=== PATIENT | female | born 1995 | race Native Hawaiian/Other Pacific Islander ===

== ENCOUNTER 2020-12-01 02:01 | Emergency (ER) | payer SELFPAY ==
[~2020-12-01] VITALS: Ht 152 cm; Wt 82.0 kg
[~2020-12-01 02:01] MED LIST: IBUP-1773 PO; PREN-148 PO
[2020-12-01] MEDS ORDERED: FAMOTIDINE 20 MG (PEPCID) TABLET PO STA (02:22)
[2020-12-01 02:23] LABS: BILIRUBIN,URINE NEGATIVE (NEGATIVE); CLARITY,URINE CLEAR; COLOR,URINE YELLOW; GLUCOSE, URINE (UA) NEGATIVE (NEGATIVE); KETONES,URINE NEGATIVE (NEGATIVE); LEUKOCYTE ESTERASE ,URINE 2+ (NEGATIVE); NITRITE,URINE POSITIVE (NEGATIVE); PROTEIN,URINE NEGATIVE (NEGATIVE)
--- NOTE | 2020-12-01 02:28 | ED Abdominal Pain ---
General Stated Complaint: ABD & BACK PAIN,3 MONTHS PREG Source of Information: Patient Exam Limitations: No Limitations History of Present Illness Date Seen by Provider: Dec 01, 2020 Time Seen by Provider: 02:09 Initial Comments Patient presents ER by private conveyance with chief complaint of 2 hours of all over abdominal pain concentrated mostly in her epigastric region. It did not wake her from sleep. She ate about 2 to 3 hours prior to this. She has never had abdominal surgeries or had her gallbladder worked up. She is complaining of nausea but no vomiting. No fevers or chills diarrhea or constipation. She had a bowel movement yesterday afternoon. She states she is approximately 3 months with an LMP sometime in July or August and expected due date somewhere around May. She sees an older gentleman at [facility] for obstetrics. She denies any other significant medical history. She has not had an ultrasound. Allergies and Home Medications Allergies Coded Allergies: No Known Drug Allergies (Unverified , 04/15/15) Patient Home Medication List Home Medication List Reviewed: Yes Ibuprofen (Ibuprofen) 600 Mg Tablet, 600 MG PO Q6H Prescribed by: KELSI VIGIL on 04/17/15 0808 Vit #76/Iron,Carb/FA (Pnv 29-1 Tablet) 1 Each Tablet, 1 EACH PO DAILY, (Reported) Entered as Reported by: CORAZON GOLDBERG on 04/15/15 1252 Review of Systems Review of Systems Constitutional: No chills, No diaphoresis EENTM: No Blurred Vision, No Double Vision Respiratory: Denies Shortness of Air Cardiovascular: Denies Chest Pain, Denies Lightheadedness Gastrointestinal: See HPI; Denies Abdomen Distended; Abdominal Pain; Denies Constipated, Denies Diarrhea; Nausea; Denies Vomiting Genitourinary: Denies Burning, Denies Discharge Musculoskeletal: No back pain, No joint pain Skin: No pruritus, No rash Psychiatric/Neurological: Denies Headache, Denies Numbness All Other Systems Reviewed Negative Unless Noted: Yes Past Yzqwajb-Kplfea-Bifrzd Hx Patient Social History Tobacco Use?: No Use of E-Cig and/or Vaping dev: No Substance use?: No Alcohol Use?: No Immunizations Up To Date Tetanus Booster (TDap): Less than 5yrs PED Vaccines UTD: Yes Past Medical History Reproductive Disorders: No Female Reproductive Disorders: Denies Sexually Transmitted Disease: No HIV/AIDS: No Adverse Reaction/Blood Tranf: No Family Medical History Asthma G8 BROTHER G8 BROTHER Physical Exam Vital Signs Vital Signs - First Documented 12/01/20 02:14 Temp 36.8 Pulse 98 Resp 18 B/P (MAP) 120/78 (92) Pulse Ox 98 O2 Delivery Room Air Capillary Refill : Height/Weight/BMI Height: 4'11.00" Weight: 131lbs. oz. 59.833838ug; 26.46 BMI Method: General Appearance: WD/WN, mild distress HEENT: PERRL/EOMI, pharynx normal Neck: full range of motion, supple, normal inspection Respiratory: lungs clear, normal breath sounds, no respiratory distress, no accessory muscle use Cardiovascular: normal peripheral pulses, regular rate, rhythm Gastrointestinal: normal bowel sounds, soft, tenderness (Epigastric) Extremities: normal range of motion, normal capillary refill Neurologic/Psychiatric: alert, normal mood/affect, oriented x 3 Skin: normal color, warm/dry Progress/Results/Core Measures Results/Orders Lab Results Laboratory Tests Test 12/01/20 02:15 12/01/20 02:25 Range/Units Urine Color YELLOW Urine Clarity CLEAR Urine pH 6.0 5-9 Urine Specific [place] 1.025 H 1.016-1.022 Urine Protein NEGATIVE NEGATIVE Urine Glucose (UA) NEGATIVE NEGATIVE Urine Ketones NEGATIVE NEGATIVE Urine Nitrite POSITIVE H NEGATIVE Urine Bilirubin NEGATIVE NEGATIVE Urine Urobilinogen 2.0 < = 1.0 MG/DL Urine Leukocyte Esterase 2+ H NEGATIVE Urine RBC (Auto) TRACE-I NEGATIVE Urine RBC 0-2 /HPF Urine WBC 5-10 H /HPF Urine Squamous Epithelial Cells 5-10 /HPF Urine Crystals NONE /LPF Urine Bacteria FEW H /HPF Urine Casts NONE /LPF Urine Mucus NEGATIVE /LPF Urine Culture Indicated YES White Blood Count 11.5 H 4.3-11.0 10^3/uL Red Blood Count 4.37 3.80-5.11 10^6/uL Hemoglobin 13.3 11.5-16.0 g/dL Hematocrit 37 35-52 % Mean Corpuscular Volume 85 80-99 fL Mean Corpuscular Hemoglobin 30 25-34 pg Mean Corpuscular Hemoglobin Concent 36 32-36 g/dL Red Cell Distribution Width 11.7 10.0-14.5 % Platelet Count 235 130-400 10^3/uL Mean Platelet Volume 10.0 9.0-12.2 fL Immature Granulocyte % (Auto) 0 % Neutrophils (%) (Auto) 68 42-75 % Lymphocytes (%) (Auto) 22 12-44 % Monocytes (%) (Auto) 8 0-12 % Eosinophils (%) (Auto) 2 0-10 % Basophils (%) (Auto) 1 0-10 % Neutrophils # (Auto) 7.8 1.8-7.8 10^3/uL Lymphocytes # (Auto) 2.5 1.0-4.0 10^3/uL Monocytes # (Auto) 0.9 0.0-1.0 10^3/uL Eosinophils # (Auto) 0.2 0.0-0.3 10^3/uL Basophils # (Auto) 0.1 0.0-0.1 10^3/uL Immature Granulocyte # (Auto) 0.1 0.0-0.1 10^3/uL Sodium Level 135 135-145 MMOL/L Potassium Level 3.5 L 3.6-5.0 MMOL/L Chloride Level 105 98-107 MMOL/L Carbon Dioxide Level 18 L 21-32 MMOL/L Anion Gap 12 5-14 MMOL/L Glucose Level 93 70-105 MG/DL Calcium Level 9.6 8.5-10.1 MG/DL Corrected Calcium 9.5 8.5-10.1 MG/DL Total Bilirubin 0.5 0.1-1.0 MG/DL Total Protein 7.7 6.4-8.2 GM/DL Albumin 4.1 3.2-4.5 GM/DL My Orders Orders - PAWAN CORRAL Ua Culture If Indicated (12/01/20 02:10) Urine Bedside (12/01/20 02:10) Cbc With Automated Diff (12/01/20 02:22) Comprehensive Metabolic Panel (12/01/20 02:22) Hs C Reactive Protein (12/01/20 02:22) Lipase (12/01/20 02:22) Lidocaine 2% Viscous 15 Ml (Xylocaine Vi (12/01/20 02:30) Famotidine Tablet (Pepcid Tablet) (12/01/20 02:22) Antacid Suspension (Mylanta Suspension (12/01/20 02:30) Ondansetron Oral Dissolve Tab (Zofran (12/01/20 02:30) Urine Culture (12/01/20 02:15) Medications Given in ED Current Medications Medications Dose Ordered Sig/Tre Route Start Time Stop Time Status Last Admin Dose Admin Al Hydrox/Mg Hydrox/Simethicone 30 ml ONCE ONCE PO 12/01/20 02:30 12/01/20 02:31 DC 12/01/20 02:32 30 ML Lidocaine HCl 15 ml ONCE ONCE PO 12/01/20 02:30 12/01/20 02:31 DC 12/01/20 02:32 15 ML Ondansetron HCl 4 mg ONCE ONCE PO 12/01/20 02:30 12/01/20 02:31 DC 12/01/20 02:32 4 MG Vital Signs/I&O 12/01/20 02:14 Temp 36.8 Pulse 98 Resp 18 B/P (MAP) 120/78 (92) Pulse Ox 98 O2 Delivery Room Air Progress Progress Note : Time: 02:33 Progress Note Abdominal discomfort came a few hours after eating and seems to be more in her epigastric region. Gastritis versus gallbladder. Plan to give her some Zofran and a GI cocktail. Basic labs and urinalysis Departure Impression Primary Impression: Urinary tract infection Qualified Codes: N30.00 - Acute cystitis without hematuria Additional Impression: Qualified Codes: Z3A.12 - 12 weeks gestation of Disposition: 01 HOME, SELF-CARE Condition: Stable Departure-Patient Inst. Decision time for Depature: 02:51 Referrals: CIRO STANFORD MD (PCP/Family) Primary Care Physician Patient Instructions: Urinary Tract Infection, Adult (DC), - The Third Month Add. Discharge Instructions: Drink lots of fluids. Keflex 1 capsule twice a day for the next week. Scripts Cephalexin (Cephalexin) 500 Mg Tablet 500 MG PO BID for 7 Days, #14 TAB 0 Refills Prov: PAWAN CORRAL 12/01/20 Copy Copies To 1: CIRO STANFORD MD, TITUS J Dec 01, 2020 02:28
[2020-12-01 02:30] LABS: BACTERIA,URINE FEW /HPF; RBC,URINE 0-2 /HPF
[2020-12-01] MEDS ORDERED: ANTACID SUSP 30 ML UDC (MYLANTA) PO ONE (02:30)
[2020-12-01] MEDS ORDERED: ONDANSETRON 4 MG (ZOFRAN) ORAL DISSOLVE TAB PO ONE (02:30)
[2020-12-01] MEDS ORDERED: LIDOCAINE 2% VISCOUS 15 ML UDC PO ONE (02:30)
[2020-12-01 02:33] LABS: BASOPHILS # (AUTO) 0.1 10^3/uL (0.0-0.1); BASOPHILS % (AUTO) 1 % (0-10); EOSINOPHILS # (AUTO) 0.2 10^3/uL (0.0-0.3); EOSINOPHILS % (AUTO) 2 % (0-10); HEMATOCRIT 37 % (35-52); HEMOGLOBIN 13.3 g/dL (11.5-16.0); LYMPHOCYTES # (AUTO) 2.5 10^3/uL (1.0-4.0); LYMPHOCYTES % (AUTO) 22 % (12-44); MEAN CORPUSCULAR HEMOGLOBIN 30 pg (25-34); MEAN CORPUSCULAR HGB CONC 36 g/dL (32-36); MEAN CORPUSCULAR VOLUME 85 fL (80-99); MONOCYTES # (AUTO) 0.9 10^3/uL (0.0-1.0); MONOCYTES % (AUTO) 8 % (0-12); NEUTROPHILS # (AUTO) 7.8 10^3/uL (1.8-7.8); NEUTROPHILS % (AUTO) 68 % (42-75); PLATELET COUNT 235 10^3/uL (130-400); WHITE BLOOD COUNT 11.5 10^3/uL (4.3-11.0)
[2020-12-01 02:43] LABS: ALBUMIN 4.1 GM/DL (3.2-4.5); POTASSIUM 3.5 MMOL/L (3.6-5.0)
[2020-12-01 02:44] LABS: CALCIUM 9.6 MG/DL (8.5-10.1)
[2020-12-01 02:46] LABS: TOTAL PROTEIN 7.7 GM/DL (6.4-8.2)
[2020-12-01 02:47] LABS: BILIRUBIN,TOTAL 0.5 MG/DL (0.1-1.0)
[2020-12-01 02:49] LABS: CREATININE SERUM 0.7 MG/DL (0.60-1.30)
[2020-12-01] MEDS ORDERED: CEPH500T PO (02:56)
[2020-12-01] MEDS ORDERED: LIDOCAINE 1% INJ 20 ML 20 ML VIAL INJ ONE (03:00)
[2020-12-01] MEDS ORDERED: cefTRIAXone 500 MG/5 ML ML IM ONE (03:00)
[2020-12-01 03:05] VITALS: BP 121/79
== END 2020-12-01 03:07 | disposition home or self-care (01) ==
LOC: EDUNIT# 02:01 → ER 02:07
DX: O23.41 Unspecified infection of urinary tract in pregnancy, first trimester (principal); Z3A.12 12 weeks gestation of pregnancy
CPT/HCPCS: 36415; 80053; 81000; 83690; 84703; 85025; 86141; 87088; 99284

== ENCOUNTER 2021-05-06 02:29 | Inpatient (IN) | payer OTHER ==
[~2021-05-06] VITALS: Ht 149.9 cm; Wt 68.2 kg
[2021-05-06] VITALS (14 sets, daily range): BP systolic 96–122; BP diastolic 51–81
[~2021-05-06 02:29] MED LIST changes: +CEPH500T PO
[2021-05-06 02:51] LABS: BILIRUBIN,URINE NEGATIVE (NEGATIVE); CLARITY,URINE CLEAR; COLOR,URINE YELLOW; GLUCOSE, URINE (UA) NEGATIVE (NEGATIVE); KETONES,URINE NEGATIVE (NEGATIVE); LEUKOCYTE ESTERASE ,URINE 2+ (NEGATIVE); NITRITE,URINE POSITIVE (NEGATIVE); PROTEIN,URINE NEGATIVE (NEGATIVE)
[2021-05-06 03:04] LABS: BACTERIA,URINE MODERATE /HPF; SQUAMOUS EPITHELIAL CELL,UR 0-2 /HPF
[2021-05-06] MEDS ORDERED: cefTRIAXone 1 GM PRE-MIX 50 ML IV ONE (04:00)
[2021-05-06] MEDS ORDERED: cefTRIAXone 1,000 MG VIAL ONE (04:02)
[2021-05-06] MEDS ORDERED: NS (IVPB) 50 ML ONE (04:02)
[2021-05-06] MEDS: LACTATED RINGERS 1,000 ML IV SCH ×2 (04:11→05:25)
[2021-05-06] MEDS ORDERED: D5 LR IV SOLUTION 1,000 ML IV SCH ×2 (05:30)
[2021-05-06 05:39] LABS: BASOPHILS % (AUTO) 0 % (0-10); EOSINOPHILS # (AUTO) 0.2 10^3/uL (0.0-0.3); EOSINOPHILS % (AUTO) 2 % (0-10); HEMATOCRIT 38 % (35-52); HEMOGLOBIN 12.9 g/dL (11.5-16.0); LYMPHOCYTES # (AUTO) 3.1 10^3/uL (1.0-4.0); LYMPHOCYTES % (AUTO) 29 % (12-44); MEAN CORPUSCULAR HEMOGLOBIN 30 pg (25-34); MEAN CORPUSCULAR HGB CONC 34 g/dL (32-36); MEAN CORPUSCULAR VOLUME 86 fL (80-99); MEAN PLATELET VOLUME 11.5 fL (9.0-12.2); MONOCYTES # (AUTO) 0.6 10^3/uL (0.0-1.0); MONOCYTES % (AUTO) 6 % (0-12); NEUTROPHILS # (AUTO) 6.5 10^3/uL (1.8-7.8); NEUTROPHILS % (AUTO) 62 % (42-75); PLATELET COUNT 164 10^3/uL (130-400); WHITE BLOOD COUNT 10.6 10^3/uL (4.3-11.0)
[2021-05-06] MEDS ORDERED: OXYTOCIN PRE-MIX DRIP 500 ML IV ONE ×2 (05:51→06:53)
[2021-05-06] MEDS ORDERED: MEPIVACAINE (CARBOCAINE) 2% 50 ML VIAL ONE (05:51)
[2021-05-06] MEDS ORDERED: CATHETER FLUSH 10 ML SYR IV SCH ×2 (06:00→14:00)
[2021-05-06] MEDS ORDERED: TETANUS,DIPTH,PERTUSS P/F (BOOSTRIX) 0.5 ML VIAL IM ONE (07:15)
[2021-05-06] MEDS ORDERED: WITCH HAZEL(TUCKS) 40 EA JAR TOP PRN (07:15)
[2021-05-06] MEDS ORDERED: MEASLES,MUMPS,RUBELLA 1 EA INJ SQ ONE (07:15)
[2021-05-06] MEDS ORDERED: OXYTOCIN PRE-MIX DRIP 500 ML IV SCH (07:15)
[2021-05-06] MEDS ORDERED: BENZOCAINE/MENTHOL (DERMOPLAST) 56 ML CAN TP PRN (07:15)
[2021-05-06] MEDS ORDERED: NALOXONE 0.4 MG/ML 1 ML (NARCAN) VIAL IV PRN (07:15)
--- NOTE | 2021-05-06 07:18 | History & Physical-OB ---
OB - Chief Complaint & HPI Date/Time Date of Admission: Date of Admission: May 06, 2021 at 05:30 Date seen by a Provider: May 06, 2021 Time Seen by a Provider: 06:05 Chief Complaint/History OB-Reason for Admission/Chief: Onset of Labor Hx : 2 Hx Para: 1 Expected Date of Delivery: May 17, 2021 Gestational Age in Weeks: 38 Gestational Age in Days: 3 Other reason for admission: contractions and in labor Admission Nurse Assessment Rev: Yes History of Labs GBS unknown Allergies and Home Medications Allergies Coded Allergies: No Known Drug Allergies (Unverified , 04/15/15) Patient Home Medication List Home Medication List Reviewed: Yes Cephalexin (Cephalexin) 500 Mg Tablet, 500 MG PO BID Prescribed by: PAWAN CORRAL on 12/01/20 0256 Ibuprofen (Ibuprofen) 600 Mg Tablet, 600 MG PO Q6H Prescribed by: KELSI VIGIL on 04/17/15 0808 Vit #76/Iron,Carb/FA (Pnv 29-1 Tablet) 1 Each Tablet, 1 EACH PO DAILY, (Reported) Entered as Reported by: CORAZON GOLDBERG on 04/15/15 1252 OB - History Hx of Present Care: Yes Ultrasounds: Normal mid trimester US Obstetrical Complications: Other (maternal syphllis - treated) Medical Complications: None Obstetrical History Hx : 2 Hx Para: 1 Delivery History Hx Blood Disorders: No Adverse Rxn to Tranfusion: No Patient Past Medical History No significant Social History/Family History Alcohol Use: Denies Use Recreational Drug Use: No 2nd Hand Smoke Exposure: No Immunizations Influenza Vaccine Up-to-Date: No; Not Current Hepatitis A: No Hepatitis B: No Tetanus Booster (TDap): Less than 5yrs OB - Admission Exam Physical Exam Vitals: Vital Signs 05/06/21 05/06/21 02:46 04:35 Temp 36.8 Pulse 76 Resp 18 B/P (MAP) 113/71 (85) Pulse Ox 98 O2 Delivery Room Air HEENT: Moist Membranes Heart: Rhythm Normal Lungs: Clear Abdomen: Gravid Cervical Dilatation: 4cm (on admission) Effacement: 75% Station: -2 Membranes: Intact (on admit) Heart Rate: 130's Accelerations: Accelerations Present Decelerations: No Decelerations Short Term Variability: Present Thread Drawer Variability: Average (6-25) Contractions on Admission: 6-10 Minutes Apart Intensity: Moderate Labs Laboratory Tests Test 05/06/21 02:45 05/06/21 04:05 Range/Units Urine Color YELLOW Urine Clarity CLEAR Urine pH 7.0 5-9 Urine Specific [place] 1.010 L 1.016-1.022 Urine Protein NEGATIVE NEGATIVE Urine Glucose (UA) NEGATIVE NEGATIVE Urine Ketones NEGATIVE NEGATIVE Urine Nitrite POSITIVE H NEGATIVE Urine Bilirubin NEGATIVE NEGATIVE Urine Urobilinogen 0.2 < = 1.0 MG/DL Urine Leukocyte Esterase 2+ H NEGATIVE Urine RBC (Auto) NEGATIVE NEGATIVE Urine RBC NONE /HPF Urine WBC 10-25 H /HPF Urine Squamous Epithelial Cells 0-2 /HPF Urine Crystals NONE /LPF Urine Bacteria MODERATE H /HPF Urine Casts NONE /LPF Urine Mucus NEGATIVE /LPF Urine Culture Indicated YES White Blood Count 10.6 4.3-11.0 10^3/uL Red Blood Count 4.38 3.80-5.11 10^6/uL Hemoglobin 12.9 11.5-16.0 g/dL Hematocrit 38 35-52 % Mean Corpuscular Volume 86 80-99 fL Mean Corpuscular Hemoglobin 30 25-34 pg Mean Corpuscular Hemoglobin Concent 34 32-36 g/dL Red Cell Distribution Width 13.6 10.0-14.5 % Platelet Count 164 130-400 10^3/uL Mean Platelet Volume 11.5 9.0-12.2 fL Immature Granulocyte % (Auto) 1 % Neutrophils (%) (Auto) 62 42-75 % Lymphocytes (%) (Auto) 29 12-44 % Monocytes (%) (Auto) 6 0-12 % Eosinophils (%) (Auto) 2 0-10 % Basophils (%) (Auto) 0 0-10 % Neutrophils # (Auto) 6.5 1.8-7.8 10^3/uL Lymphocytes # (Auto) 3.1 1.0-4.0 10^3/uL Monocytes # (Auto) 0.6 0.0-1.0 10^3/uL Eosinophils # (Auto) 0.2 0.0-0.3 10^3/uL Basophils # (Auto) 0.0 0.0-0.1 10^3/uL Immature Granulocyte # (Auto) 0.1 0.0-0.1 10^3/uL Glucose Level 66 L 70-105 MG/DL OB - Assessment/Plan/Diagnosis Assessment Assessment: active labor Admission Dx 1. IUP at 39 weeks 3 days gestation 2. 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
--- NOTE | 2021-05-06 07:20 | OB Labor & Delivery Record ---
L&D History Date of Service Date of Service: May 06, 2021 History Expected Date of Delivery: May 17, 2021 Gestational Age in Weeks: 38 Hx : 2 Hx Para: 2 Complications Events: Routine care (Except for maternal syphilis treated) Operative Indications (Ces[place]: N/A-Vaginal Delivery Intrapartal Events: None Other Complications -Delivery proceeded to quickly for ampicillin protocol since her GBS status was unknown. We will check with [facility] charts L&D Stage1 Stage One Onset of Labor - Date: May 06, 2021 Onset of Labor - Time: 02:00 Monitors and Tracing Monitor Mode: External Heart Rate: 135 Monitor Accelerations: Uniform Monitor Decelerations: Variable Station: -2 Short Term Variability: Present Presentation: Vertex Vital Signs VS - Last 72 Hours, by Label 05/06/21 05/06/21 05/06/21 05/06/21 02:37 02:45 02:46 04:35 Temp 37.1 37.1 37.1 36.8 Pulse 77 77 77 76 Resp 18 18 18 18 B/P (MAP) 116/70 (85) 113/71 (85) Pulse Ox 98 98 98 O2 Delivery Room Air Room Air Room Air Room Air Signs of Distress by FHT Signs of Distress No Rupture of Membranes Spontaneous Ruture of Membrane: No Amniotic Membrane Rupture Time: 06:10 Amniotic Membrane Fluid Desc.: Clear Vaginal Bleeding Description: None Induction/Anesthesia Medications None L&D Stage2 Stage Two Stage II Date: May 06, 2021 Stage II Time: 06:29 Monitors and Tracing Monitor Mode: External Heart Rate: 135 Monitor Accelerations: Uniform Monitor Decelerations: Variable Assisted Variability: Average (6-10) Short Term Variability: Present Position: Left Occiput Anterior Presentation: Vertex Signs of Distress by FHT Signs of Distress No Cord Descript/Complications Cord Vessel Description: 3 Vessels Delivery Type Infant Delivery Method: Spontaneous Vaginal Anterior Shoulder: Left Episiotomy/Perineal Laceration Laceraction(s)/Extensions: No Condition of Delivery 1 minute Comment: 8 5 minute Comment: 9 Condition of Infant Condition of : Living Exam: No Observed Abnormalities Resuscitation Resuscitation: N/A - Spontaneous Resp L&D Stage3 Stage Three Stage III Date: May 06, 2021 Stage III Time: 06:34 Pictocin Pitocin Administration mu/min: 12 Placenta Delivery Placenta Delivery: Spontaneous Delivery Summary Summary Estimated blood loss (mL): 200 Condition of Delivery Examined: Cervix Examined Post Hemorrhage: No Intervention Required None MADISON PABLO MD May 06, 2021 07:20
[2021-05-06] MEDS: IBUPROFEN 600 MG (MOTRIN) TAB PO SCH ×2 (12:45→18:30)
[2021-05-06] MEDS: DOCUSATE SODIUM 100 MG (COLACE) CAP PO SCH ×2 (12:45→22:01)
[2021-05-06] MEDS: ACETAMINOPHEN 500 MG TAB (TYLENOL) PO SCH ×2 (12:45→18:30)
[2021-05-07 01:29] VITALS: BP 96/52
[2021-05-07] MEDS: ACETAMINOPHEN 500 MG TAB (TYLENOL) PO SCH ×2 (01:29→08:22)
[2021-05-07] MEDS: IBUPROFEN 600 MG (MOTRIN) TAB PO SCH ×2 (01:29→08:23)
[2021-05-07 06:15] LABS: BASOPHILS % (AUTO) 0 % (0-10); EOSINOPHILS # (AUTO) 0.2 10^3/uL (0.0-0.3); EOSINOPHILS % (AUTO) 2 % (0-10); HEMATOCRIT 29 % (35-52); HEMOGLOBIN 10.2 g/dL (11.5-16.0); LYMPHOCYTES # (AUTO) 3.5 10^3/uL (1.0-4.0); LYMPHOCYTES % (AUTO) 33 % (12-44); MEAN CORPUSCULAR HEMOGLOBIN 30 pg (25-34); MEAN CORPUSCULAR HGB CONC 35 g/dL (32-36); MEAN CORPUSCULAR VOLUME 86 fL (80-99); MEAN PLATELET VOLUME 11.5 fL (9.0-12.2); MONOCYTES # (AUTO) 0.6 10^3/uL (0.0-1.0); MONOCYTES % (AUTO) 5 % (0-12); NEUTROPHILS # (AUTO) 6.3 10^3/uL (1.8-7.8); NEUTROPHILS % (AUTO) 59 % (42-75); PLATELET COUNT 137 10^3/uL (130-400); WHITE BLOOD COUNT 10.7 10^3/uL (4.3-11.0)
[2021-05-07] MEDS ORDERED: PRENATAL VITAMIN 1 EA TAB PO SCH (07:00)
--- NOTE | 2021-05-07 07:14 | Discharge Summary ---
Diagnosis/Chief Complaint Date of Admission May 06, 2021 at 05:30 Date of Discharge May 07, 2021 Admission Diagnosis Admission Diagnosis 1. Intrauterine at 38 weeks gestation Discharge Diagnosis 1. Intrauterine at 38 weeks gestation Chief Complaint/HPI Chief Complaint/HPI 25-year-old 2 now termed 2 who initially presented to labor and delivery during the morning of May 06, 2021 in active labor. She was dilated to 4 cm upon presentation. Her EDC was noted to be May 17, 2021. Discharge Summary-OBS Procedures 1. Spontaneous vaginal delivery Discharge Physical Examination Allergies: Coded Allergies: No Known Drug Allergies (Unverified , 04/15/15) Vitals & I&Os Vital Sign - Last 12Hours Date Time Temp Pulse Resp B/P (MAP) Pulse Ox O2 Delivery O2 Flow Rate FiO2 05/07/21 01:29 36.8 66 18 96/52 (67) 97 Room Air General Appearance: No Acute Distress Respiratory: Clear to Auscultation Cardiovascular: Regular Rate Abdominal: Soft (with uterus firm) Hospital Course Was the Problem List Reviewed?: Yes Upon presentation she continued her labor course. Ultimately she went on to deliver in the showroom consultant of May 06, 2021 a term viable male. Infant delivered with Apgars of 8 at 1 minute and 9 at 5 minutes. Mother did not have any perineal lacerations. See labor and delivery note for full details. Following delivery she underwent routine care orders. She had no complications during the remainder of hospital stay. She voided urine without difficulty. She was noted to be ambulatory and not with any significant shortness of breath or chest pain. Her hemoglobin in the morning of May 07, 2021 was noted to be 10.2 compared to admission of 12.9. She was felt ready for dismissal and all questions were answered. She will follow-up with myself in 6 weeks check [facility]. Labs Laboratory Tests 05/07/21 05:45: White Blood Count 10.7, Red Blood Count 3.43L, Hemoglobin 10.2#L, Hematocrit 29L , Mean Corpuscular Volume 86, Mean Corpuscular Hemoglobin 30, Mean Corpuscular Hemoglobin Concent 35, Red Cell Distribution Width 13.9, Platelet Count 137, Mean Platelet Volume 11.5, Immature Granulocyte % (Auto) 1, Neutrophils (%) (Auto) 59, Lymphocytes (%) (Auto) 33, Monocytes (%) (Auto) 5, Eosinophils (%) (Auto) 2, Basophils (%) (Auto) 0, Neutrophils # (Auto) 6.3, Lymphocytes # (Auto) 3.5, Monocytes # (Auto) 0.6, Eosinophils # (Auto) 0.2, Basophils # (Auto) 0.0, Immature Granulocyte # (Auto) 0.1 Discharge Instructions to patient/family Please see electronic discharge instructions given to patient. Discharge Medications Reviewed and agree with Discharge Medication list on patient's Discharge Instruction sheet MADISON PABLO MD May 07, 2021 07:14
[2021-05-07] MEDS ORDERED: IBUP-1773 PO (07:18)
--- NOTE | 2021-05-07 07:19 | Discharge Inst-Women's Service ---
Discharge Inst-Women's Serv Depart Medication/Instructions New, Converted or Re-Newed RX: Transmitted to Pharmacy ([facility]) Problems Reviewed?: Yes Consults/Follow Up Additional Follow Up: Yes (Dr Pablo in 6 weeks at [facility]) Activity Activity: Activity as Tolerated Driving Instructions: No Driving for 1 Week Nothing Inside Vagina: No [place] (for 6 weeks) Diet Discharge Diet: Regular Diet Return to The Hospital For: as below Symptoms to Report to : Bleeding Excessive, Fever Over 101 Degrees F, Vaginal Discharge Foul For Any Problems or Questions: Contact Your Physician MADISON PABLO MD May 07, 2021 07:19
[2021-05-07 08:22] VITALS: BP 112/82
[2021-05-07] MEDS: DOCUSATE SODIUM 100 MG (COLACE) CAP PO SCH (08:23)
== END 2021-05-07 11:25 | disposition home or self-care (01) | DRG 807 ==
LOC: WSo 02:29 → LDRP 02:30 → WSo 05:29 → LDRP 05:30
PROVIDERS: ADMIT Family Medicine; ATTEND Family Medicine
PROC: 10E0XZZ Delivery of Products of Conception, External Approach (ICD-10-PCS; principal; 2021-05-06)
DX: O80 Encounter for full-term uncomplicated delivery (principal); Z37.0 Single live birth; Z3A.38 38 weeks gestation of pregnancy
CPT/HCPCS: 36415; 81000; 82947; 85025; 86780; 86850; 86900; 86901; 87077; 87088; 87186; 99212

== ENCOUNTER 2022-12-14 08:29 | Emergency (ER) | payer SELFPAY ==
[~2022-12-14] VITALS: Ht 154 cm; Wt 81.6 kg
--- NOTE | 2022-12-14 09:07 | ED GU-Female ---
General Chief Complaint: OB < 20 WEEKS Stated Complaint: 4 WEEKS | HEAVY VAGINAL BLEEDING Nursing Triage Note: pt presents to ed via pov from home with complaints of vaginal bleeding and blood clots starting yesterday. pt was seen at the medical center yesterday but was unable to have us done. pt reports having positive preg tests at home. pt unsure how far along she is but reports last menstral period in oct. Source: patient Exam Limitations: no limitations (JOANNA MOMIN) History of Present Illness Date Seen by Provider: Dec 14, 2022 Time Seen by Provider: 08:55 Initial Comments Patient presents today with a 1 day history of vaginal bleeding. She says that the bleeding has been copious amounts over the past day. She went to [facility] a yesterday afternoon to try to get an US done, but they did not have US available at that time. Her last menstrual period was in October so she believes herself to be around 4 weeks at this time. She has 2 prior pregnancies, 7 year and over 1 year ago. Both pregnancies were uncomplicated she states. She has no pain associated with her bleeding and states she has no other presenting symptoms. She denies any nausea, vomiting, abdominal pain, diarrhea, headaches at this time. Timing/Duration: yesterday Severity/Quality: mild Location: vaginal Radiation: none Activities at Onset: none Prior Genitourinary Problems: none Sexual [place] History: less than 2 months ago, single partner (JOANNA MOMIN) Allergies and Home Medications Allergies Coded Allergies: No Known Drug Allergies (Unverified , 04/15/15) Patient Home Medication List Home Medication List Reviewed: Yes (JOANNA MOMIN) Cephalexin (Cephalexin) 500 Mg Tablet, 500 MG PO BID Prescribed by: PAWAN CORRAL on 12/01/20 0256 Ibuprofen (Ibuprofen) 600 Mg Tablet, 600 MG PO Q6H Prescribed by: MADISON PABLO on 05/07/21 0718 Vit #76/Iron,Carb/FA (Pnv 29-1 Tablet) 1 Each Tablet, 1 EACH PO DAILY, (Reported) Entered as Reported by: CORAZON GOLDBERG on 04/15/15 1252 Review of Systems Review of Systems Constitutional: no symptoms reported EENTM: no symptoms reported Respiratory: no symptoms reported; No short of breath, No wheezing Cardiovascular: no symptoms reported; No palpitations, No syncope Gastrointestinal: No abdominal pain, No diarrhea, No nausea, No vomiting Genitourinary: hematuria : Yes LMP: Nov 02, 2022 (last week of October she knows) Musculoskeletal: no symptoms reported (JOANNA MOMIN) All Other Systemes Reviewed Negative Unless Noted: Yes (JOANNA MOMIN) Past Jdpqmcp-Kccaom-Pwwzbv Hx Patient Social History Tobacco Use?: No Substance use?: No Alcohol Use?: No Pt feels they are or have been: No (JOANNA MOMIN) Immunizations Up To Date Tetanus Booster (TDap): Less than 5yrs PED Vaccines UTD: Yes (JOANNA MOMIN) Past Medical History Surgery/Hospitalization HX: denies Reproductive Disorders: No Female Reproductive Disorders: Denies Sexually Transmitted Disease: No HIV/AIDS: No Adverse Reaction/Blood Tranf: No (JOANNA MOMIN) Family Medical History Asthma G8 BROTHER G8 BROTHER Physical Exam Vital Signs Vital Signs - First Documented 12/14/22 08:49 Temp 37.4 Pulse 76 Resp 18 B/P (MAP) 120/78 (92) Pulse Ox 99 (MAIRA ESTHER HARDY MD) Vital Signs Capillary Refill : Less Than 3 Seconds (JOANNA MOMIN) Height, Weight, BMI Height: 4'11.00" Weight: 131lbs. oz. 59.022814cz; 34.00 BMI Method: General Appearance: WD/WN, no apparent distress Cardiovascular: regular rate, rhythm, no gallop, no murmur Respiratory: lungs clear, normal breath sounds, no respiratory distress, no accessory muscle use Gastrointestinal: non tender, soft Neurologic/Psychiatric: alert, normal mood/affect, oriented x 3 (JOANNA MOMIN) Progress/Results/Core Measures Suspected Sepsis SIRS Temperature: Pulse: 76 Respiratory Rate: 18 Blood Pressure 120 /78 Mean: 92 (JOANNA MOMIN) Results/Orders Lab Results Laboratory Tests Test 12/14/22 08:45 Range/Units White Blood Count 10.8 4.3-11.0 10^3/uL Red Blood Count 4.79 3.80-5.11 10^6/uL Hemoglobin 14.2 11.5-16.0 g/dL Hematocrit 42 35-52 % Mean Corpuscular Volume 87 80-99 fL Mean Corpuscular Hemoglobin 30 25-34 pg Mean Corpuscular Hemoglobin Concent 34 32-36 g/dL Red Cell Distribution Width 12.1 10.0-14.5 % Platelet Count 250 130-400 10^3/uL Mean Platelet Volume 10.0 9.0-12.2 fL Immature Granulocyte % (Auto) 1 % Neutrophils (%) (Auto) 60 42-75 % Lymphocytes (%) (Auto) 28 12-44 % Monocytes (%) (Auto) 9 0-12 % Eosinophils (%) (Auto) 2 0-10 % Basophils (%) (Auto) 1 0-10 % Neutrophils # (Auto) 6.5 1.8-7.8 10^3/uL Lymphocytes # (Auto) 3.0 1.0-4.0 10^3/uL Monocytes # (Auto) 1.0 0.0-1.0 10^3/uL Eosinophils # (Auto) 0.3 0.0-0.3 10^3/uL Basophils # (Auto) 0.1 0.0-0.1 10^3/uL Immature Granulocyte # (Auto) 0.1 0.0-0.1 10^3/uL Human Chorionic Gonadotropin, Quant 78 H <5 MIU/ML (MARIA ESTHER HARDY MD) My Orders Orders - MARIA ESTHER HARDY MD Cbc And Automated Diff (12/14/22 09:10) Hcg,Quantitative (12/14/22 09:10) Ed Iv/Invasive Line Start (12/14/22 09:12) Us Ob<14 Wks Sngle W/Transvag (12/14/22 09:53) (MARIA ESTHER HARDY MD) Vital Signs/I&O 12/14/22 12/14/22 08:49 14:11 Temp 37.4 37.4 Pulse 76 80 Resp 18 18 B/P (MAP) 120/78 (92) 114/75 Pulse Ox 99 99 (MARIA ESTHER HARDY MD) Vital Signs/I&O Capillary Refill : Less Than 3 Seconds (JOANNA MOMIN) Blood Pressure Mean: 92 Progress Note : Time: 08:55 Progress Note 8:55 - Patient is seen this morning with a 1 day history of vaginal bleeding. She has no other associated symptoms or pain involved with the bleeding. She was seen at [facility] yesterday but they did not have US available at that time. She knows that her LMP was the last week of October and believes herself to be around 4 weeks at this time. She has had two other pregnancies prior without complications in either one. Her heart and lung exam are unremarkable at this point in the exam, she has no abdominal pain on palpation. Plan is to obtain a CBC and Quantitative HcG at this time. (JOANNA MOMIN) Diagnostic Imaging Diagonstic Imaging: Ultrasound Plain Films/CT/US/NM/MRI: pelvis Comments NAME: AILYN PARK MED REC#: [id number] PT STATUS: DEP ER : 1995 PHYSICIAN: MARIA ESTHER HARDY MD ADMIT DATE: 12/14/22/ER Signed Date of Exam:12/14/22 US OB<14 WKS SNGLE W/TRANSVAG INDICATION: 1st trimester bleeding. FINDINGS: No intra or extrauterine gestation is identified. There is no adnexal lesion or torsion. The endometrium is thickened but homogenous at 1.7 cm. No fibroid or myometrial mass. No free fluid. IMPRESSION: No intra or extrauterine gestation. No adnexal torsion. No acute appearing abnormality. Dictated by: Dictated on workstation # [id number] Dict: 12/14/22 1235 Trans: 12/14/228 [id number] Interpreted by: CHELSY BULLOCK Electronically signed by: CHELSY BULLOCK 12/14/22 1418 (MARIA ESTHER HARDY MD) Departure Impression Primary Impression: Vaginal bleeding affecting early Additional Impression: Probable miscarriage Disposition: 01 HOME, SELF-CARE Condition: Stable Departure-Patient Inst. Decision time for Depature: 13:59 (MARIA ESTHER HARDY MD) Referrals: CIRO STANFORD MD (PCP/Family) Primary Care Physician Patient Instructions: Bleeding In Early , Miscarriage (DC) Add. Discharge Instructions: Your hormone level (beta hCG) was low at 78. This means that you are either very early in , or that you have miscarried and your hormone level is dropping. No was seen in your uterus during the ultrasound. This also may mean you are very early in or that you have already had a miscarriage. Based the timing of your last period and the positive urine test at home, you most likely are experiencing a miscarriage. You need to have a follow-up in the clinic including a another hormone level checked in about 48 hours. Please call the clinic to make arrangements. Arrangements were made with Dr. Stanford to place an order for a repeat hormone level checked on December 16. If you walk into the clinic on December 16, you should be able to have your blood drawn for those labs. However, you should also schedule a follow-up appointment to be seen in the clinic. You may use Tylenol (acetaminophen) up to 1000 mg every 6 hours as needed for pain. Return to the emergency room if you have worsening symptoms fever over 100.3 F, chills, lightheadedness, shortness of breath, extreme weakness, escalating pain, or unreasonably heavy bleeding. All discharge instructions reviewed with patient and/or family. Voiced understanding. Medical Student Attestation and Attending Note: I have personally interviewed and examined this patient along with CHRISTIAN Jorge. I have reviewed student documentation including history, physical, and assessments. I agree with the documentation except where oth erwise noted. Labs were obtained, reviewed, and interpreted by me. hCG was positive with a level of only 78. CBC was unremarkable. Blood type was recorded as be positive from prior encounters. Patient did not require RhoGAM. Ultrasound was obtained and showed no evidence of intrauterine or extrauterine . The combination of ultrasound results and low hCG suggest patient is miscarrying. These results were communicated to the patient. I did contact Dr. Stanford, primary care provider and obstetrical provider with [facility]. She placed an order for repeat hCG to be done at the clinic. Return precautions were reviewed with patient. See discharge instructions for further discussion. Exam: General: Alert, oriented, no acute distress, well developed HEENT: Normocephalic and atraumatic Heart: Regular rate and rhythm without murmur Lungs: Clear to auscultation bilaterally with normal effort Abdomen: Soft, nontender, nondistended, normal bowel sounds Neuropsych: Alert, oriented, no focal deficits Skin: Warm and dry without rashes (MARIA ESTHER HARDY MD) Copy Copies To 1: CIRO STANFORD MD, BRETT Dec 14, 2022 09:06 MARIA ESTHER HARDY MD Dec 14, 2022 14:03
[2022-12-14 09:18] LABS: BASOPHILS # (AUTO) 0.1 10^3/uL (0.0-0.1); BASOPHILS % (AUTO) 1 % (0-10); EOSINOPHILS # (AUTO) 0.3 10^3/uL (0.0-0.3); EOSINOPHILS % (AUTO) 2 % (0-10); HEMATOCRIT 42 % (35-52); HEMOGLOBIN 14.2 g/dL (11.5-16.0); LYMPHOCYTES % (AUTO) 28 % (12-44); MEAN CORPUSCULAR HEMOGLOBIN 30 pg (25-34); MEAN CORPUSCULAR HGB CONC 34 g/dL (32-36); MEAN CORPUSCULAR VOLUME 87 fL (80-99); MONOCYTES % (AUTO) 9 % (0-12); NEUTROPHILS # (AUTO) 6.5 10^3/uL (1.8-7.8); NEUTROPHILS % (AUTO) 60 % (42-75); PLATELET COUNT 250 10^3/uL (130-400); WHITE BLOOD COUNT 10.8 10^3/uL (4.3-11.0)
--- NOTE | 2022-12-14 12:37 | Diagnostic Imaging Report ---
INDICATION: 1st trimester bleeding. FINDINGS: No intra or extrauterine gestation is identified. There is no adnexal lesion or torsion. The endometrium is thickened but homogenous at 1.7 cm. No fibroid or myometrial mass. No free fluid. IMPRESSION: No intra or extrauterine gestation. No adnexal torsion. No acute appearing abnormality. Dictated by: Dictated on workstation # [id number]
[2022-12-14 14:11] VITALS: BP 114/75
== END 2022-12-14 14:11 | disposition home or self-care (01) ==
LOC: EDUNIT# 08:29 → ER 08:31
DX: O20.9 Hemorrhage in early pregnancy, unspecified (principal); Z3A.01 Less than 8 weeks gestation of pregnancy
CPT/HCPCS: 36415; 76801; 76817; 84702; 84703; 85025